=== PATIENT | male | born 1940 | race Two or more races ===

== ENCOUNTER 2019-05-28 14:45 | Emergency (ER) | payer MEDICARE, OTHER ==
[~2019-05-28] VITALS: Ht 152.4 cm; Wt 49.0 kg
--- NOTE | 2019-05-28 14:58 | NUR ---
ED Nurse Note: Pt came in from home with due to "Flattened Dialysis fistula" noticed yesterday. Pt missed Dialysis today and was sent into the ER by Dr. Pearson for check up. Fistula on L upper arm. Pt has Dialysis on M-F. AOx4, VSS at this time. No complaint of SOB or any pain. Will cont to monitor.
[2019-05-28 15:05] VITALS: BP 146/51
--- NOTE | 2019-05-28 15:14 | Emergency Room Report ---
History of Present Illness General Chief Complaint: General Complaint Source: Patient Present Illness HPI Disclaimer: Please note that this report is being documented using [employer] technology. This can lead to erroneous entry secondary to incorrect interpretation by the dictating instrument. HPI: This is 78-year-old male with a history of ESRD on hemodialysis MWF, CAD status post stent, diabetes, hypertension presents for evaluation of dialysis graft malfunction. The patient was scheduled for hemodialysis today however they could not perform it because the dialysis graft in his left upper extremity was flattened. They called her vascular surgeon, , and he stated that he was in the hospital today and instructed them to go to the emergency department here at [facility]. He has no complaints at this time. Denies any chest pain, shortness of breath, swelling of the lower extremities, cough, fever, abdominal pain, vomiting or any other changes in his health. Last saw his vascular surgeon yesterday and everything was working properly. Denies injury PMH: CAD, diabetes, ESRD, hypertension PSH: Dialysis graft, cardiac stent Allergies: Acetaminophen, aspirin, penicillin Social Hx: Former smoker Allergies: Coded Allergies: ACETAMINOPHEN (Verified Allergy, Unknown, 05/28/19) ASPIRIN (Verified Allergy, Unknown, 05/28/19) PENICILLINS (Verified Allergy, Unknown, 05/28/19) Nursing Documentation-PMH Past Medical History: No History, Except For Hx Hypertension: Yes - HTN Hx Diabetes: Yes - Type 2 Hx Dialysis: Yes - Friday and Friday Review of Systems All Other Systems: negative except mentioned in HPI Physical Exam Vital Signs Date Time Temp Pulse Resp B/P (MAP) Pulse Ox O2 Delivery O2 Flow Rate FiO2 05/28/19 14:52 98.4 93 18 150/73 (98) 100 Room Air General: Awake and alert, no acute distress HEENT: NC/AT. EOMI. Cardiovascular: Irregularly irregular rhythm, normal rate. S1 and S2 normal. No murmur appreciated Resp: Normal work of breathing. No cough, wheezing or crackles appreciated Abdomen: Abdomen is soft, nondistended. Nontender Skin: Intact. No abrasions, laceration or rash over the exposed skin MSK: Normal tone and bulk. Moving all extremities. No obvious deformity. Palpable graft in the left upper extremity. Neuro: Awake and alert. Mentating appropriately. Medical Decision Making Diagnostic Impression: Primary Impression: AV graft malfunction Additional Impressions: Atrial fibrillation Hyperglycemia ER Course 78-year-old male with history of ESRD presents for evaluation of AV graft malfunction. Will contact his surgeon and check labs as the patient was scheduled for hemodialysis today. On monitor, he has an irregularly irregular rhythm the patient and his deny any history of atrial fibrillation or other arrhythmia. Will obtain an EKG, broad metabolic infectious work-up. Vital signs are stable. Laboratory Tests Test 05/28/19 15:16 White Blood Count 7.7 K/UL (4.8-10.8) Red Blood Count 3.89 M/UL (4.70-6.10) L Hemoglobin 12.2 G/DL (14.2-18.0) L Hematocrit 36.4 % (42.0-52.0) L Mean Corpuscular Volume 94 FL (80-99) Mean Corpuscular Hemoglobin 31.4 PG (27.0-31.0) H Mean Corpuscular Hemoglobin Concent 33.5 G/DL (32.0-36.0) Red Cell Distribution Width 11.9 % (11.6-14.8) Platelet Count 158 K/UL (150-450) Mean Platelet Volume 9.1 FL (6.5-10.1) Neutrophils (%) (Auto) 51.7 % (45.0-75.0) Lymphocytes (%) (Auto) 31.5 % (20.0-45.0) Monocytes (%) (Auto) 13.6 % (1.0-10.0) H Eosinophils (%) (Auto) 2.3 % (0.0-3.0) Basophils (%) (Auto) 0.8 % (0.0-2.0) Sodium Level 139 MMOL/L (136-145) Potassium Level 4.0 MMOL/L (3.5-5.1) Chloride Level 104 MMOL/L (98-107) Carbon Dioxide Level 25 MMOL/L (21-32) Anion Gap 10 mmol/L (5-15) Blood Urea Nitrogen 58 mg/dL (7-18) H Creatinine 5.1 MG/DL (0.55-1.30) H Estimate Glomerular Filtration Rate mL/min (>60) Glucose Level 292 MG/DL (74-106) H Calcium Level 9.2 MG/DL (8.5-10.1) Total Bilirubin 0.4 MG/DL (0.2-1.0) Aspartate Amino Transferase (AST) 23 U/L (15-37) Alanine Aminotransferase (ALT) 15 U/L (12-78) Alkaline Phosphatase 47 U/L (46-116) Troponin I 0.200 ng/mL (0.000-0.056) Pro-B-Type Natriuretic Peptide 9303 pg/mL (0-125) H Total Protein 7.9 G/DL (6.4-8.2) Albumin 4.1 G/DL (3.4-5.0) Globulin 3.8 g/dL Albumin/Globulin Ratio 1.1 (1.0-2.7) EKG Diagnostic Results EKG Time: 15:14 Rate: normal Rhythm: other - Irregularly irregular ST Segments: no acute changes Other Impression Atrial fibrillation, normal rate, normal axis Rhythm Strip Diag. Results Rhythm Strip Time: 15:14 EP Interpretation: yes Rate: 90s Rhythm: other - Irregularly irregular rhythm Other Impression Atrial fibrillation Reevaluation Time: 15:52 Last Vital Signs Date Time Temp Pulse Resp B/P (MAP) Pulse Ox O2 Delivery O2 Flow Rate FiO2 05/28/19 15:07 95 18 Room Air 05/28/19 15:05 98.4 146/51 99 Status: unchanged Reevaluation Impression Contacted the patient's vascular surgeon who is at [facility]. The patient mistakenly came to this hospital however his potassium is within normal limits. Troponin is slightly elevated as is the BN peptide consistent with ESRD however there is no prior for comparison. He is chest pain -free and has no complaints at this time. His EKG does show atrial fibrillation which is presumably new as the patient denies any prior history however there are no prior EKGs to compare. I did discuss with his PMD who wants to see him in his office next week but is in agreement that he needs to be seen at [facility] for evaluation by his vascular surgeon which we will arrange. I discussed the need for follow-up with the patient and his . They understand and agree with the treatment plan will be discharged and instructed to proceed to [facility] Disposition: HOME, SELF-CARE Condition: Stable René Mejia MD May 28, 2019 15:14
--- NOTE | 2019-05-28 15:15 | NUR ---
paged dr urena
[2019-05-28 15:36] LABS: BASOPHILS % (AUTO) 0.8 % (0.0-2.0); EOSINOPHILS % (AUTO) 2.3 % (0.0-3.0); HEMATOCRIT 36.4 % (42.0-52.0); HEMOGLOBIN 12.2 G/DL (14.2-18.0); LYMPHOCYTES % (AUTO) 31.5 % (20.0-45.0); MEAN CORPUSCULAR VOLUME 94 FL (80-99); MONOCYTES % (AUTO) 13.6 % (1.0-10.0); NEUTROPHILS % (AUTO) 51.7 % (45.0-75.0); PLATELET COUNT 158 K/UL (150-450); RED BLOOD COUNT 3.89 M/UL (4.70-6.10); RED CELL DISTRIBUTION WIDTH 11.9 % (11.6-14.8); WHITE BLOOD COUNT 7.7 K/UL (4.8-10.8)
[2019-05-28 15:39] LABS: ANION GAP 10 mmol/L (5-15); BLOOD UREA NITROGEN 58 mg/dL (7-18); CALCIUM 9.2 MG/DL (8.5-10.1); CARBON DIOXIDE 25 MMOL/L (21-32); CHLORIDE 104 MMOL/L (98-107); CREATININE 5.1 MG/DL (0.55-1.30); SODIUM 139 MMOL/L (136-145)
--- NOTE | 2019-05-28 15:45 | NUR ---
called dr bradford office per office staff dr urena is waiting at [facility] . patient was instructed to go there due to dr urena in [facility] he is already scheduled to go there for revison of his shunt , dr mckoy has been notified
[2019-05-28 15:49] LABS: ALANINE AMINOTRANSFERASE 15 U/L (12-78); ALBUMIN 4.1 G/DL (3.4-5.0); ALBUMIN/GLOBULIN RATIO 1.1 (1.0-2.7); ALKALINE PHOSPHATASE 47 U/L (46-116); ASPARTATE AMINO TRANSFERASE 23 U/L (15-37); BILIRUBIN,TOTAL 0.4 MG/DL (0.2-1.0)
[2019-05-28 15:51] VITALS: BP 140/57
--- NOTE | 2019-05-28 15:56 | NUR ---
ED Nurse Note: Pt is notified that he needs to go to [facility] ER. Pt does not complain of any CP or SOB. ERMD explained to pt follow up care and D/C instructions. AOx4, VSS. Pt is able to able to ambulate with steady gait. Pt left with all belongings.
[2019-05-28 15:58] VITALS: BP 146/51
--- NOTE | 2019-05-28 15:58 | NUR ---
ED Nurse Note: Taxi voucher provided, taxi called for pt's transportation. No sign of acute distress.
--- NOTE | 2019-05-29 13:22 | Cardiology Report ---
APPROVED REPORT EKG Measurement Heart [id number] Atrial fibrillation with premature ventricular or aberrantly conducted complexes Nonspecific ST and T wave abnormality Prolonged QT Abnormal ECG
== END 2019-05-28 15:58 | disposition home or self-care (01) ==
LOC: EMR 15:26
DX: T82.318A Breakdown (mechanical) of other vascular grafts, initial encounter (principal); I48.91 Unspecified atrial fibrillation; E11.65 Type 2 diabetes mellitus with hyperglycemia; E11.22 Type 2 diabetes mellitus with diabetic chronic kidney disease; I12.0 Hypertensive chronic kidney disease with stage 5 chronic kidney disease or end stage renal disease; N18.6 End stage renal disease; Z99.2 Dependence on renal dialysis; Z87.891 Personal history of nicotine dependence; Z95.5 Presence of coronary angioplasty implant and graft; Z88.6 Allergy status to analgesic agent; Z88.0 Allergy status to penicillin
CPT/HCPCS: 36415; 80053; 83880; 84484; 85025; 93005; 99284